=== PATIENT | female | born 1970 | race Caucasian/White ===

== ENCOUNTER 2022-09-25 12:58 | Emergency (ER) | payer BC, SELFPAY ==
[2022-09-25 13:10] VITALS: BP 166/101; PULSE 60; RESP 14; TEMP 36.7; O2SAT 99; BMI 25.0
--- NOTE | 2022-09-25 13:12 | DI.RAD.S_ITS ---
PROCEDURE: XR WRIST LT MIN 3V INDICATIONS: wrist injury TECHNIQUE: 4 views of the wrist were acquired. COMPARISON: None. FINDINGS: Bones: Impacted distal radius fracture which is comminuted and likely extends to the articular surface with mild dorsal angulation of the major distal fragment. Ulnar styloid avulsion. No dislocation. No suspicious bony lesions. Scaphoid view: Unremarkable Soft tissues: No suspicious soft tissue calcifications. IMPRESSION: Impacted distal radius fracture, comminuted, likely extending to the articular surface, with mild angulation. Ulnar styloid avulsion. Dictated by: Michael Lopez M.D. on 09/25/2022 at 13:31 Approved by: Michael Lopez M.D. on 09/25/2022 at 13:32
--- NOTE | 2022-09-25 14:09 | ED.UPPEXIN ---
HPI - Extremity Injury (Upper) <Eva Freeman PA-C - Last Filed: 09/25/22 17:33> General Chief Complaint: Extremity Injury, Upper Stated Complaint: poss. broken/sprained LT wrist Time Seen by Provider: 09/25/22 14:01 Source: patient Mode of arrival: Ambulatory History of Present Illness HPI narrative: This is a 52-year-old female who presents with concern for left wrist pain and deformity. She states she was shoveling ice in a steep driveway this morning and fell landing taking all of her weight on her left arm at the base of her hand she said it compressed her forearm. She is been having pain and has been splinting it with a magazine and keeping it still as well as ice. She denies previous injuries to this wrist, she also denies any other injuries from her fall today including hitting her head, loss of consciousness, neck pain or any other symptoms. She does note that she is flying back to [place] on Wednesday and is concerned regarding follow-up and not sure if it makes sense for her to stay in the area for orthopedic follow-up or go to [place]. Related Data Previous Rx's Medication Instructions Recorded oxycodone-acetaminophen 5 mg-325 1 tab PO Q8H PRN pain #6 tabs 09/25/22 mg tablet (Percocet) oxycodone-acetaminophen 5 mg-325 1 tab PO Q8H PRN pain #7 tabs 09/25/22 mg tablet (Percocet) Allergies Allergy/AdvReac Type Severity Reaction Status Date / Time No Known Drug Allergies Allergy Verified 09/25/22 13:10 Review of Systems <Eva Freeman PA-C - Last Filed: 09/25/22 17:33> Review of Systems Narrative: Unremarkable except as noted in the HPI Patient History <Eva Freeman PA-C - Last Filed: 09/25/22 17:33> Social History Smoking Status: Unknown if ever smoked Smoking Status: Unknown if ever smoked alcohol intake frequency: 0-2 drinks per day Substance Use Type: does not use Exam <Eva Freeman PA-C - Last Filed: 09/25/22 17:33> Narrative Exam Narrative: GENERAL: 52 year old patient appears stated age. Well-developed patient, in mild distress. HEAD: Atraumatic. Normocephalic. EYES: Pupils equal round and reactive. Extraocular motions intact. No scleral icterus. No injection or drainage. ENT: Nose without bleeding, purulent drainage. Airway patent. NECK: Trachea midline. Non tender CARDIOVASCULAR: Regular rate and rhythm without murmurs, gallops, or rubs. RESPIRATORY: Clear to auscultation. Breath sounds equal bilaterally. No wheezes, rales, or rhonchi. GASTROINTESTINAL: Abdomen nondistended. EXTREMITIES: There is obvious deformity of the left wrist most notably over the distal radius which is raised and slightly angulated posteriorly in relation the the proximal hand, she has a strong radial pulse, skin is pink, capillary refill is less than 2 seconds, she is able to move all fingers, unable to move the wrist 2nd to pain. There is moderate associated swelling. No other edema or joint tenderness. NEURO: AOx3. SKIN: No rash or erythema of visible areas Initial Vital Signs Initial Vital Signs: Vital Signs Temperature 98.0 F 09/25/22 13:10 Pulse Rate 60 09/25/22 13:10 Respiratory Rate 14 09/25/22 13:10 Blood Pressure 166/101 H 09/25/22 13:10 Pulse Oximetry 99 09/25/22 13:10 Oxygen Delivery Method 09/25/22 13:10 <Nicole Morrissey DO - Last Filed: 10/01/22 19:07> Initial Vital Signs Initial Vital Signs: Vital Signs Temperature 98.0 F 09/25/22 13:10 Pulse Rate 60 09/25/22 13:10 Respiratory Rate 14 09/25/22 13:10 Blood Pressure 166/101 H 09/25/22 13:10 Pulse Oximetry 99 09/25/22 13:10 Oxygen Delivery Method 09/25/22 13:10 Procedures <Eva Freeman PA-C - Last Filed: 09/25/22 17:33> Orthopedic Fracture Reduction Fracture #1: Time of procedure: 16:25 Time Out Performed: Yes Side: left Fracture Reduction Location: radius (distal comminuted, dorsal angulation) Analgesia: hematoma block (lidocaine 1% 6mL) Technique: direct manipulation Post-reduction neuro exam: intact Post-reduction vascular exam: intact Splint Applied: Yes (sugar tong) Patient Tolerated Procedure: Well Course <Eva Freeman PA-C - Last Filed: 09/25/22 17:33> Orders Ordered: Discontinued Medications Acetaminophen (Acetaminophen 325 Mg Tablet) 650 mg PO NOW ONE Stop: 09/25/22 15:33 Last Admin: 09/25/22 16:08 Dose: Not Given Documented By: MLM Ketorolac Tromethamine (Ketorolac 30 Mg/Ml Vial) 30 mg IM NOW ONE Stop: 09/25/22 15:46 Last Admin: 09/25/22 15:56 Dose: 30 mg Documented By: MLM Lidocaine HCl (Lidocaine 1% 20 Ml) 20 ml INJ INTRA-OP ONE Stop: 09/25/22 15:32 Last Admin: 09/25/22 15:57 Dose: 20 ml Documented By: MLM Oxycodone/Acetaminophen (Oxycodone/Acetaminophen 5/325 Tablet) 1 tab PO NOW ONE Stop: 09/25/22 15:36 Last Admin: 09/25/22 15:56 Dose: 1 tab Documented By: MLM Consultations Consultation #1: Did speak with Dr. Read, on-call orthopedic surgeon about this patient. He agrees with the plan for splinting today with hematoma block and reduction during splinting. Does advise it is reasonable for the patient to follow-up in [place] with Orthopedics after she returns home next Wednesday. Says that this can wait 1-2 weeks to be seen in clinic. He does recommend she will need to have repeat imaging done next week/when seen even if repeat imaging today after splinting looks good. 14:40 Vital Signs Vital signs: Vital Signs - 8 hr 09/25/22 13:10 09/25/22 17:27 Temperature 98.0 F Pulse Rate 60 Pulse Rate [Right Radial] 68 Respiratory Rate 14 Blood Pressure 166/101 H Pulse Oximetry 99 Oxygen Delivery Method Room Air <Nicole Morrissey DO - Last Filed: 10/01/22 19:07> Orders Ordered: Discontinued Medications Acetaminophen (Acetaminophen 325 Mg Tablet) 650 mg PO NOW ONE Stop: 09/25/22 15:33 Last Admin: 09/25/22 16:08 Dose: Not Given Documented By: MLM Ketorolac Tromethamine (Ketorolac 30 Mg/Ml Vial) 30 mg IM NOW ONE Stop: 09/25/22 15:46 Last Admin: 09/25/22 15:56 Dose: 30 mg Documented By: EMRE Lidocaine HCl (Lidocaine 1% 20 Ml) 20 ml INJ INTRA-OP ONE Stop: 09/25/22 15:32 Last Admin: 09/25/22 15:57 Dose: 20 ml Documented By: EMRE Oxycodone/Acetaminophen (Oxycodone/Acetaminophen 5/325 Tablet) 1 tab PO NOW ONE Stop: 09/25/22 15:36 Last Admin: 09/25/22 15:56 Dose: 1 tab Documented By: EMRE Vital Signs Vital signs: Vital Signs - 8 hr 09/25/22 13:10 09/25/22 17:27 Temperature 98.0 F Pulse Rate 60 Pulse Rate [Right Radial] 68 Respiratory Rate 14 Blood Pressure 166/101 H Pulse Oximetry 99 Oxygen Delivery Method Room Air MDM - Extremity Injury (Upper) <Eva Freeman PA-C - Last Filed: 09/25/22 17:33> Differential Diagnosis Differential diagnosis: Likely sprain and strain of wrist, fracture of wrist and other (fall) Imaging Data Extremity x-ray #1: Radiologist's Impression: [place] [address] XRay Report Signed Patient: Julio Aguilera MR#: [id number] : 1970 Acct:[id number] Age/Sex: 52 / F Date of Service: 09/25/22 Loc: ED Accession Number: [id number] ?? Procedure: XR wrist LT min 3V Ordering Provider: Nicole Morrissey D.O. PROCEDURE:? XR WRIST LT MIN 3V ? INDICATIONS: wrist injury ? TECHNIQUE:? 4 views of the wrist were acquired.? ? COMPARISON:? None. ? FINDINGS:? ? Bones:? Impacted distal radius fracture which is comminuted and likely extends to the articular surface with mild dorsal angulation of the major distal fragment.? Ulnar styloid avulsion.? No dislocation.? No suspicious bony lesions.? ? Scaphoid view:? Unremarkable ? Soft tissues:? No suspicious soft tissue calcifications.? ? IMPRESSION:? Impacted distal radius fracture, comminuted, likely extending to the articular surface, with mild angulation.? Ulnar styloid avulsion. ? ? Dictated by: Michael Lopez M.D. on 09/25/2022 at 13:31 ? ? Approved by: Michael Lopez M.D. on 09/25/2022 at 13:32?? Extremity x-ray #2: Radiologist's Impression: [address] [address] XRay Report Signed Patient: Julio Aguilera MR#: [id number] : 1970 Acct:[id number] Age/Sex: 52 / F Date of Service: 09/25/22 Loc: ED Accession Number: [id number] ?? Procedure: XR wrist LT min 3V Ordering Provider: Eva Freeman P.A-C PROCEDURE:? XR WRIST LT MIN 3V INDICATIONS: post reduction/splinting ? TECHNIQUE:? 3 views of the wrist were acquired.? ? COMPARISON:? [facility], CR, XR WRIST LT MIN 3V, 09/25/2022, 13:22. ? FINDINGS:? ? Bones:? Casted views.? Improved alignment, comminuted distal radius fracture extending to articular surface.? Associated ulnar styloid avulsion.? No suspicious bony lesions.? ? Soft tissues:? No suspicious soft tissue calcifications.? ? IMPRESSION:? Improved alignment post reduction.? Comminuted distal radius fracture with associated ulnar styloid avulsion. ? ? Dictated by: Michael Lopez M.D. on 09/25/2022 at 17:09 ? ? Approved by: Michael Lopez M.D. on 09/25/2022 at 17:11?? [facility] Narrative Medical decision making narrative: This is a well-appearing previously healthy 52-year-old female who presents with concern for left wrist pain and deformity after falling catching herself on her left wrist today while shoveling ice off a steep driveway. Patient has a comminuted fracture of the distal left radius as well as a small avulsion fracture of the distal ulna laterally. Wrist is slightly angulated. She does have intact radial pulse and cap refill with good skin color and temperature. Orthopedics is consulted for further, who agrees with plan for hematoma block and splinting today in the emergency department. Advising reasonable for her to be seen by Orthopedics in [place] after she returns home next Wednesday. Advises that she should be seen and re-evaluated with repeat x-rays in the next 1-2 weeks. Return precautions provided, follow-up plan discussed, all questions answered. Discharge Plan Departure Patient Disposition: Home Clinical Impression: Fracture of wrist Instructions: DI for Distal Radius Fracture Activity Restrictions/Additional Instructions: Thank you for letting us be part of your care in the emergency department today. We did a numbing block with lidocaine and worked on reducing or realigning your fracture of your left wrist today while splinting it. We did see some improvement on the repeat x-rays but it is possible that is not yet well enough aligned and that it still may need surgery. This is something you will need to follow-up with orthopedics back home in [place] since you are leaving on Wednesday. I strongly recommend that you touch base with your primary care provider as soon as possible and let them know about your injury and ask for a referral to Orthopedics down there so that you can get in for follow-up appointment within the next 2 weeks. Otherwise watch for any significant increases in pain, loss of sensation numbness tingling or change of color of your fingers of the affected left side. I did prescribe a very short course of some stronger pain medicine for you have very strongly recommend Tylenol and ibuprofen, keeping the limb elevated and in a sling as much as possible. There is no evidence of an emergent or life threatening illness at this time, but follow up with your doctor in 1-2 days is recommended nonetheless to continue to rule out serious underlying causes of your symptoms. Please call the office for an appointment. Please return to the Emergency Department for any worsening or persistent symptoms. Please take medications as directed. Prescriptions: New oxycodone-acetaminophen [Percocet] 5-325 mg tablet 1 tab PO Q8H PRN (Reason: pain) Qty: 6 0RF oxycodone-acetaminophen [Percocet] 5-325 mg tablet 1 tab PO Q8H PRN (Reason: pain) Qty: 7 0RF Referrals: Jacobo Matos MD [Physician] - (see Dr Matos if not returning to [place] next week) Doctor Lobo MD [Primary Care Provider] - Visit Report Forms: Patient Portal/API <Nicole Morrissey DO - Last Filed: 10/01/22 19:07> Cosign ED Attending Maximusature Attestation: I was immediately available in the department for consultation. Documentation has been reviewed.
[2022-09-25] MEDS: OXYCODONE/ACETAMINOPHEN 5/325 TABLET 1 TAB PO (15:56)
[2022-09-25] MEDS: KETOROLAC 30 MG/ML VIAL IM (15:56)
[2022-09-25] MEDS: LIDOCAINE 1% 20 ML INJ (15:57)
--- NOTE | 2022-09-25 16:28 | DI.RAD.S_ITS ---
PROCEDURE: XR WRIST LT MIN 3V INDICATIONS: post reduction/splinting TECHNIQUE: 3 views of the wrist were acquired. COMPARISON: [facility], CR, XR WRIST LT MIN 3V, 09/25/2022, 13:22. FINDINGS: Bones: Casted views. Improved alignment, comminuted distal radius fracture extending to articular surface. Associated ulnar styloid avulsion. No suspicious bony lesions. Soft tissues: No suspicious soft tissue calcifications. IMPRESSION: Improved alignment post reduction. Comminuted distal radius fracture with associated ulnar styloid avulsion. Dictated by: Michael Lopez M.D. on 09/25/2022 at 17:09 Approved by: Michael Lopez M.D. on 09/25/2022 at 17:11
[2022-09-25 17:27] VITALS: PULSE 68
== END 2022-09-25 17:32 | disposition home or self-care (01) ==
PROVIDERS: Emergency Provider Student in an Organized Health Care Education/Training Program
DX: S52.502A Unspecified fracture of the lower end of left radius, initial encounter for closed fracture (principal); W00.0XXA Fall on same level due to ice and snow, initial encounter
CPT/HCPCS: 25605; 73110; 96372; 99284; J1885